=== PATIENT | female | born 1980 | race Caucasian/White ===

== ENCOUNTER 2019-04-23 12:54 | Outpatient (CLI) | payer OTHER, MEDICAID, SELFPAY ==
[2019-04-23 13:25] VITALS: BP 0/0
[2019-04-23 13:26] VITALS: BP 90/77; PULSE 100
[2019-04-23 13:33] VITALS: BMI 73.2
== END 2019-04-23 14:35 | disposition home or self-care (01) ==
LOC: OPOB 13:12 → OBGYN 13:51 → OPOB 04-24 13:28
PROVIDERS: Family Provider Family Medicine; Visit Provider Family Medicine
DX: O26.899 Other specified pregnancy related conditions, unspecified trimester (principal); Z3A.00 Weeks of gestation of pregnancy not specified; R10.9 Unspecified abdominal pain
CPT/HCPCS: 59025; 99211

== ENCOUNTER 2019-04-27 14:43 | Inpatient (IN) | payer OTHER, MEDICAID, SELFPAY ==
[2019-04-27] VITALS (52 sets, daily range): BP systolic 0–191; BP diastolic 0–103; PULSE 69–105; RESP 18–20; TEMP 36.7–37.1; BMI 72.8
[2019-04-27] MEDS: acetaminophen 325 mg Tablet 650 MG PO (16:28)
[2019-04-27] MEDS: dextrose 5%-lactated ringers 1,000 ML 125 ML IV (16:32)
[2019-04-27] MEDS: oxytocin 30 UNIT/500 ML BAG IV (16:32)
[2019-04-27 16:52] LABS: Basophils % 0.2 %; Eosinophils # 0.2 10^3/uL (0.0-0.8); Eosinophils % 1.4 %; Hematocrit 38.6 % (37.0-47.0); Hemoglobin 12.7 g/dL (11.5-15.3); Lymphocytes # 2.8 10^3/uL (0.8-4.8); Lymphocytes % 19.3 %; Mean Corpuscular HGB Conc 32.9 g/dL (30.0-36.0); Mean Corpuscular Hemoglobin 31.1 pg (28.0-34.0); Mean Corpuscular Volume 94.6 fL (81-99); Mean Platelet Volume 10.7 fL (7.4-10.4); Monocytes # 1.3 10^3/uL (0.2-0.9); Monocytes % 8.8 %; Neutrophils # 10.1 10^3/uL (1.8-7.7); Neutrophils % 69.7 %; Nucleated Red Blood Cells % 0 %; Platelet Count 343 10^3/cmm (130-400); Red Blood Count 4.08 10^6/uL (4.1-5.3); White Blood Count 14.5 10^3/uL (4.0-10.0)
[2019-04-27] MEDS: fentaNYL 50 mcg/mL INJ 2mL IV ×3 (18:41→21:56)
[2019-04-27] MEDS: labetalol 200 mg Tablet PO (20:46)
[2019-04-27] MEDS: labetalol 5 mg/mL SDV 20mL IVP ×2 (21:30→22:12)
[2019-04-28] VITALS (21 sets, daily range): BP systolic 0–161; BP diastolic 0–85; PULSE 72–98; RESP 16–22; TEMP 36.7–36.8; O2SAT 96–98
--- NOTE | 2019-04-28 01:15 | P.PCNOB_ITS ---
Delivery Note: Date of delivery: 04/28/19 Pre-delivery diagnoses: 1. 39-year-old 3 para 2-0-0-2 with an estimated gestational age of 39 weeks presenting for induction due to morbid obesity and some gestational hypertension Post-delivery diagnoses: Status post spontaneous vaginal delivery Estimated blood loss (mL): 200 Delivery: DELIVERY: The patient progressed to complete without difficulty. She delivered a male with a weight of 8 pounds 10 ounces with Apgars of 9, 10. The baby was delivered from the NAHOMI position. The baby's mouth and nose were suctioned at the site of the perineum. The baby was then completely delivered and placed on the mother's abdomen. The cord was then clamped and cut. There was no nuchal cord. There was no meconium. The placenta and 3 vessel cord were delivered intact shortly thereafter. The perineum and vaginal vault were carefully examined. A posterior midline second-degree laceration was noted. It was repaired with 3-0 Vicryl in the usual fashion. 2% lidocaine was used some to locally anesthetize the area. Both the mother and the baby were in stable condition. Post-Delivery Status: Good Coding Level of Care Code Acute Medical Billing Representative for Cheryl Mares
[2019-04-28] MEDS: HYDROcodone-acetaminophen 5-325 mg Tablet PO (03:17)
[2019-04-28] MEDS: docusate sodium 100 mg Capsule PO ×2 (09:21→20:01)
[2019-04-28] MEDS: prenatal vitamin Capsule 1 CAP PO (09:21)
[2019-04-28 14:08] LABS: Hematocrit 31.3 % (37.0-47.0); Hemoglobin 10.2 g/dL (11.5-15.3); Mean Corpuscular HGB Conc 32.6 g/dL (30.0-36.0); Mean Corpuscular Hemoglobin 30.3 pg (28.0-34.0); Mean Corpuscular Volume 92.9 fL (81-99); Platelet Count 236 10^3/cmm (130-400); Red Blood Count 3.37 10^6/uL (4.1-5.3); Red Cell Distribution Width 14.2 % (12.1-15.1)
--- NOTE | 2019-04-29 00:38 | P.DS_ITS ---
Discharge Providers REMEDIATION PROJECT ENGINEER Date of Admission: 04/27/19 14:43 Date of Discharge: 04/29/19 Attending Provider at Admission: Armaan Barraza MD Attending Provider at Discharge: Armaan Barraza MD Diagnoses at Discharge Discharge Diagnosis (1) 39 weeks gestation of : Status: Acute (2) Morbid obesity: Status: Acute (3) Spontaneous vaginal delivery: Status: Acute (4) Sterilization education: Status: Acute Reason for Visit Reason for Visit: Reason For Visit: INDUCTION Hospital Course Hospital Course: The patient presented to the hospital for induction at 39 weeks due to morbid obesity, swelling, and maternal age. She was placed on Pitocin. An amniotomy was performed. She did have some high blood pressures during labor process for which she was placed on labetalol. She progressed to complete and had an unremarkable spontaneous vaginal delivery. Her course was also unremarkable. Her bleeding was within normal limits. Her pain was well controlled with ibuprofen. Information Peripartum Data: Infant Delivery Method: Vaginal Physical Exam Narrative: EXAM NARRATIVE: The patient is alert. She appears comfortable. Her heart has a regular rate and rhythm with no murmurs appreciated. Lungs are clear to auscultation bilaterally. Her fundus is firm and below the umbilicus. The patient has 1-2+ edema in her ankles bilaterally. Discharge Data Data Completed and Pending: Labs from last 24 hours 04/28/19 13:54 WBC 16.0 H RBC 3.37 L Hgb 10.2 L Hct 31.3 L MCV 92.9 MCH 30.3 MCHC 32.6 RDW 14.2 Plt Count 236 MPV 11.0 H Vitals: Last Vital Signs Temp 98.2 F 04/28/19 20:00 Pulse 80 04/28/19 20:00 Resp 16 04/28/19 20:00 BP 108/64 04/28/19 20:00 Pulse Ox 98 04/28/19 20:00 Discharge Plan Discharge Patient Disposition: Home, Self-Care Condition: Stable Prescriptions: New ibuprofen 800 mg Tablet 800 mg PO TID Qty: 30 RF: 0 Continued PNV cmb#[id number]-ferrous fumarate-FA [] 28 mg iron- 800 mcg Tablet 1 tab PO DAILY RF: 0 Discharge Orders: Discharge Order (Routine); Ordered 04/29/19 Ordered By: Armaan Barraza Referrals: Iban Medrano MD [Physician] - 1 month Armaan Barraza MD [Family Provider] - 6 Weeks Discharge Diet: Regular Discharge Activity: Limit activity as instructed Discharge Attestations REMEDIATION PROJECT ENGINEER Time Spent in Discharge Care*: less than 30 min Coding Level of Care Code Acute Physician Pediatrician for Chg Fwd Diagnoses 39 weeks gestation of Z3A.39 Morbid obesity E66.01 Spontaneous vaginal delivery O80 Sterilization education Z30.09
[2019-04-29 04:11] VITALS: BP 98/43; PULSE 86; RESP 16; TEMP 36.6; O2SAT 98
[2019-04-29 10:29] VITALS: BP 124/81; PULSE 83; RESP 18; TEMP 36.7; O2SAT 98
== END 2019-04-29 11:45 | disposition home or self-care (01) | DRG 807 ==
PROVIDERS: Admitting Provider Family Medicine; Family Provider Family Medicine; Visit Provider Family Medicine
DX: O13.4 Gestational [pregnancy-induced] hypertension without significant proteinuria, complicating childbirth (principal); Z37.0 Single live birth; O99.214 Obesity complicating childbirth; Z3A.39 39 weeks gestation of pregnancy; O70.1 Second degree perineal laceration during delivery
CPT/HCPCS: 12345; 36415; 59409; 85025; 85027; 96375; 98960; J3010; J3490

== ENCOUNTER 2019-06-03 16:50 | Outpatient (CLI) | payer OTHER, MEDICAID, SELFPAY ==
--- NOTE | 2019-06-03 16:30 | USCV_ITS ---
Nicolette Alvares Age: 39 Gender: F : 1980 Exam Date: 06/03/2019 17:14 Ordering Phys: Armaan Barraza MD Technologist: Kayla Grimm Exam Location: [facility] – [place] Indication: EDEMA OF EXTREMITIES BP: 138 / 70 HR: 77 Rhythm: Sinus Technical Quality: Adequate MEASUREMENTS (Male / Female) Normal Values 2D ECHO LV Diastolic Diameter PLAX 5.1 cm 4.2 - 5.9 / 3.9 - 5.3 cm LV Systolic Diameter PLAX 3.8 cm IVS Diastolic Thickness 1.2 cm 0.6 - 1.0 / 0.6 - 0.9 cm IVS Systolic Thickness 1.4 cm LVPW Diastolic Thickness 1.1 cm 0.6 - 1.0 / 0.6 - 0.9 cm LVPW Systolic Thickness 1.4 cm LVOT Diameter 2.0 cm LV Ejection Fraction 2D Teich 50.5 % LV Ejection Fraction MOD 2C 57.1 % LV Ejection Fraction 2C AL 57.2 % LA Diameter 4.8 cm LA Width 3.4 cm LA Height 5.4 cm RA Width 3.8 cm RA Height 5.7 cm Aorta at Sinotubular Diameter 3.3 cm M-MODE LV Diastolic Diameter MM 6.2 cm 4.2 - 5.9 / 3.9 - 5.3 cm LV Systolic Diameter MM 4.4 cm LV Ejection Fraction MM Teich 54.8 % IVS Diastolic Thickness MM 1.2 cm 0.6 - 1.0 / 0.6 - 0.9 cm IVS Systolic Thickness MM 1.7 cm LVPW Diastolic Thickness MM 1.2 cm 0.6 - 1.0 / 0.6 - 0.9 cm LVPW Systolic Thickness MM 1.7 cm Aortic Annulus Diameter 3.2 cm LA Ao Ratio MM 1.5 MV E Point Septal Separation 0.7 cm DOPPLER AV Peak Velocity 146.0 cm/s LVOT Peak Velocity 74.0 cm/s AV Area Cont Eq vti 1.8 cm squared AV Area Cont Eq pk 1.7 cm squared MV Area PHT 3.0 cm squared Mitral E to A Ratio 1.1 MV E' Velocity 11.0 cm/s Mitral E to MV E' Ratio 7.8 Mitral E to LV E' Lateral Ratio 7.8 Mitral E to LV E' Septal Ratio 7.9 TR Peak Velocity 247.1 cm/s TR Peak Gradient 24.4 mmHg TR Mean Velocity 196.9 cm/s TR Mean Gradient 16.1 mmHg TR Velocity Time Integral 67.3 cm TV Peak E Velocity 52.0 cm/s Right Atrial Pressure 3.0 mmHg Pulmonary Artery Systolic Pressu 27.4 mmHg PV Peak Velocity 105.0 cm/s RV Acceleration Time 0.1 s RV Ejection Time 0.3 s RV AcT/ET 0.5 FINDINGS Left Ventricle Normal left ventricular cavity size. Normal left ventricular systolic function. Left ventricular ejection fraction is estimated at 54 %. No regional wall motion abnormalities. Grade I/IV diastolic dysfunction (abnormal relaxation filling pattern), normal to mildly elevated filling pressures. Right Ventricle The right ventricle is normal in size and function. Right Atrium The right atrium is normal in size. Left Atrium The left atrium is normal in size. Mitral Valve Structurally normal mitral valve without significant stenosis or prolapse. There is no mitral regurgitation. Aortic Valve Structurally normal aortic valve without significant sclerosis or stenosis. There is no aortic regurgitation. Tricuspid Valve Structurally normal tricuspid valve without significant stenosis or regurgitation. Pulmonary artery systolic pressure is normal. Pulmonic Valve Structurally normal pulmonic valve without significant stenosis. There is no pulmonic regurgitation. Pericardium Normal pericardium without effusion. Aorta Normal ascending aorta dimension. CONCLUSIONS 1-Normal left ventricular cavity size. Normal left ventricular systolic function. Left ventricular ejection fraction is estimated at 54 %. No regional wall motion abnormalities. Grade I/IV diastolic dysfunction (abnormal relaxation filling pattern), normal to mildly elevated filling pressures. 2-There is no pericardial effusion. 3-No significant valve abnormalities. 4-Pulmonary artery systolic pressure is within normal limits. 5-Right atrial pressure is around 5 mm of mercury. 6-There are no prior echocardiogram studies to compare. Clifton Cook MD (Electronically Signed) Final Date: 04 June 2019 18:47 S
== END 2019-06-03 16:51 | disposition home or self-care (01) ==
LOC: US 16:50
PROVIDERS: Family Provider Family Medicine; PCP Family Medicine; Visit Provider Family Medicine
DX: R60.0 Localized edema (principal)
CPT/HCPCS: 93306

== ENCOUNTER 2019-06-17 12:03 | Outpatient (RCR) | payer OTHER, MEDICAID, SELFPAY | END 2019-06-28 23:59 | disposition home or self-care (01) | LOC: SPT 12:03 | PROVIDERS: Family Provider Family Medicine; PCP Family Medicine; Referring Provider Family Medicine; Visit Provider Family Medicine | DX: R60.0 Localized edema (principal) | CPT/HCPCS: 97140; 97161 ==

== ENCOUNTER 2019-10-12 08:08 | Outpatient (CLI) | payer OTHER, MEDICAID, SELFPAY | END 2019-10-12 08:09 | disposition home or self-care (01) | LOC: WOUND 08:09 | PROVIDERS: Family Provider Family Medicine; PCP Family Medicine; Visit Provider Thoracic Surgery (Cardiothoracic Vascular Surgery) | DX: R60.9 Edema, unspecified (principal) | CPT/HCPCS: A6530; G0463 ==

== ENCOUNTER 2021-03-07 10:55 | Emergency (ER) | payer OTHER, MEDICAID, SELFPAY ==
--- NOTE | 2021-03-07 11:07 | XR_ITS ---
WS: [id number] Exam: XR chest 1V portable [id number] Date/Time of Exam: 03/07/2021 11:22 AM Reason For Exam: sob Comparison 07/10/2015. The lungs are fully inflated and clear. Heart size is normal. No pleural effusions. Chronic eventrati on of the right diaphragm. XR/XR chest 1V portable [id number] IMPRESSION: 1. No acute cardiopulmonary finding.
[2021-03-07 11:13] VITALS: BP 160/93; PULSE 91; RESP 18; TEMP 37.1; O2SAT 97; BMI 83.2
[2021-03-07 12:32] LABS: Basophils # 0.1 10^3/uL (0.0-0.1); Basophils % 0.5 %; Eosinophils # 0.2 10^3/uL (0.0-0.8); Eosinophils % 1.3 %; Hematocrit 45.7 % (37.0-47.0); Hemoglobin 14.6 g/dL (11.5-15.3); Mean Corpuscular HGB Conc 31.9 g/dL (30.0-36.0); Mean Corpuscular Volume 90.7 fl (81-99); Mean Platelet Volume 10.2 fL (7.4-10.4); Monocytes # 1.1 10^3/uL (0.2-0.9); Neutrophils # 7.36 10^3/uL (1.8-7.7); Neutrophils % 62.8 %; Nucleated Red Blood Cells % 0 %; Platelet Count 389 10^3/cmm (130-400); Red Blood Count 5.04 10^6/uL (4.1-5.3); Red Cell Distribution Width 14.1 % (12.1-15.1); White Blood Count 11.7 10^3/uL (4.0-10.0)
[2021-03-07 13:03] LABS: Alanine Aminotransferase 14 U/L (0-33); Albumin Level 4.4 g/dL (3.5-5.2); Alkaline Phosphatase 93 IU/L (35-105); Anion Gap 17.4 (5-19); Aspartate Amino Transferase 18 U/L (0-32); Blood Urea Nitrogen 15 mg/dL (6-20); Calcium 9.5 mg/dL (8.5-10.5); Carbon Dioxide 21 mmol/L (22-29); Chloride 101 mmol/L (98-107); Globulin 3.9 g/dL (1.3-4.6); Glomerular Filtration Rate 110.7 mL/min (90-130); Glucose 93 mg/dL (65-115); Osmolality Calculated 281 mOsm/kg (285-295); Potassium 4.4 mmol/L (3.5-5.1); Sodium 135 mmol/L (136-145); Total Bilirubin 0.4 mg/dL (0.15-1.2); Total Protein 8.3 g/dL (6.6-8.7)
[2021-03-07 15:35] LABS: NT Pro B Type Natriuretic Pept 45 pg/mL (0-125)
[2021-03-07 16:01] VITALS: BP 146/101; PULSE 82; RESP 20; O2SAT 96
--- NOTE | 2021-03-07 16:05 | W.ED.SOB ---
HPI - SOB/Dyspnea General: Chief Complaint: Shortness of Breath/Dyspnea Stated Complaint: SOB, NAUSEA Time Seen by Provider: 03/07/21 15:57 History of Present Illness: HPI Narrative: 41-year-old female history of COPD presents due to shortness of breath. States she has had cough and shortness of breath for the past week. Recently tested negative for Covid on Thursday. Denies any fevers or chills. Denies any chest pain. Does state she has history of COPD but is not currently on albuterol. Patient is PERC negative. Review of Systems Narrative: - CONSTITUTIONAL: Denies weight loss, fever and chills. - HEENT: Denies changes in vision and hearing. - RESPIRATORY: As above - CV: Denies palpitations and CP. - GI: Denies abdominal pain, nausea, vomiting and diarrhea. - : Denies dysuria and urinary frequency. - MSK: Denies myalgia and joint pain. - SKIN: Denies rash and pruritus. - NEUROLOGICAL: Denies headache, weakness, numbness and syncope. - PSYCHIATRIC: Denies suicidal ideation [facility] ED PFSH: Medical History (Updated 04/08/20 @ 09:34 by Laura Alba MD) Bilateral lower extremity edema Left patella fracture Lymphedema of both lower extremities Obesity Surgical History History of left knee surgery Patella fracture Family History Mother Breast cancer Diabetes Hypertension Grandmother Diabetes maternal Father Hypertension Sister Thyroid disease Social History Smoking and tobacco status: current every day smoker cigarettes Packs smoked per day: 1 Alcohol intake: never Course Vital Signs: Vital signs: Vital Signs Temperature 98.7 F 03/07/21 11:13 Pulse Rate 82 03/07/21 16:01 Respiratory Rate 20 H 03/07/21 16:01 Blood Pressure 146/101 03/07/21 16:01 Pulse Oximetry 96 03/07/21 16:01 MDM - SOB/Dyspnea MDM Narrative: Medical decision making narrative: 41-year-old female presents with shortness of breath and cough for 1 week. Has had negative Covid test during this period. Mild wheezing on exam. She is hemodynamically stable afebrile nontoxic-appearing. Saturating well on room air and with ambulation. Prescription for albuterol and prednisone provided. Clinically suspect COPD exacerbation. X-ray does not reveal any sign of pneumothorax consolidation or other acute abnormality. Remainder of lab work is unremarkable. EKG does not reveal any acute ischemic change patient still having chest pain. At this time I believe patient would be safe for discharge and outpatient follow-up. Return precautions provided. Plan was reviewed with the patient who expressed understanding. Questions answered. Patient will follow up with PCP. Patient discharged in stable condition. Lab Data: Labs: Lab Results 03/07/21 03/07/21 03/07/21 12:24 12:24 12:24 WBC 11.7 10^3/uL H 10 ^3/uL (4.0-10.0) RBC 5.04 10^6/uL 10^6 /uL (4.1-5.3) Hgb 14.6 g/dL g/dL (11.5-15.3) Hct 45.7 % % (37.0-47.0) MCV 90.7 fl fl (81-99) MCH 29.0 pg pg (28.0-34.0) MCHC 31.9 g/dL g/dL (30.0-36.0) RDW 14.1 % % (12.1-15.1) Plt Count 389 10^3/cmm 10^3 /cmm (130-400) MPV 10.2 fL fL (7.4-10.4) Neut % (Auto) 62.8 % % Lymph % (Auto) 26.0 % % [place] % (Auto) 9.0 % % Eos % (Auto) 1.3 % % Baso % (Auto) 0.5 % % Neut # (Auto) 7.36 10^3/uL 10^3 /uL (1.8-7.7) Lymph # (Auto) 3.0 10^3/uL 10^3/ uL (0.8-4.8) [place] # (Auto) 1.1 10^3/uL H 10^ 3/uL (0.2-0.9) Eos # (Auto) 0.2 10^3/uL 10^3/ uL (0.0-0.8) Baso # (Auto) 0.1 10^3/uL 10^3/ uL (0.0-0.1) Nucleated RBC % (a uto) 0 % % Nucleated RBCs # 0.0 /100WBC /100W BC Sodium 135 mmol/L L mmol /L (136-145) Potassium 4.4 mmol/L mmol/L (3.5-5.1) Chloride 101 mmol/L mmol/L (98-107) Carbon Dioxide 21 mmol/L L mmol/ L (22-29) Anion Gap 17.4 (5-19) BUN 15 mg/dL mg/dL (6-20) Creatinine 0.6 mg/dL mg/dL (0.5-0.9) GFR Calculation 110.7 mL/min mL/m in (90-130) Glucose 93 mg/dL mg/dL (65-115) Calculated Osmolal ity 281 mOsm/kg L mOs m/kg (285-295) Calcium 9.5 mg/dL mg/dL (8.5-10.5) Total Bilirubin 0.4 mg/dL mg/dL (0.15-1.2) AST 18 U/L U/L (0-32) ALT 14 U/L U/L (0-33) Alkaline Phosphata se 93 IU/L IU/L (35-105) NT-Pro-B Natriuret Pep 45 pg/mL pg/mL (0-125) Total Protein 8.3 g/dL g/dL (6.6-8.7) Albumin 4.4 g/dL g/dL (3.5-5.2) Globulin 3.9 g/dL g/dL (1.3-4.6) EKG Data^: EKG 1: Other EKG Comments: Normal sinus rhythm rate of 81. Possible LVH. No sign of acute ischemia or other acute abnormality. Discharge Plan Discharge Prescriptions: No Action albuterol sulfate 90 mcg/actuation HFA aerosol inhaler 2 puff inhalation Q6H PRNRF: 0 furosemide [Lasix] 20 mg tablet 20 mg PO DAILY Qty: 30 RF: 1 potassium chloride 8 mEq tablet extended release 8 meq PO DAILY Qty: 30 RF: 1 ibuprofen 800 mg Tablet 800 mg PO TID Qty: 30 RF: 0 Coding Level of Care Code ED Provider Relations Consultant for Chg Fwd
--- NOTE | 2021-03-07 16:06 | ECG_ITS ---
[facility] Test Date: 2021-03-07 Pat Name: Nicolette Alvares Department: Room: Gender: Female Patent Agent: : 1980 Requested By: Sergio Lombardo Order Number: [id number] Garcia MD: Efrain Gutierrez M.D. Measurements Intervals [place] Rate: 81 P: 12 NE: 163 QRS: -24 QRSD: 99 T: 64 QT: 386 QTc: 449 Interpretive Statements SINUS RHYTHM VOLTAGE CRITERIA FOR LVH [MEETS CRITERIA IN ONE OF: R(aVL), S(V1), R(V5), R(V5/V6)+S(V1)] POSSIBLE ANTERIOR MYOCARDIAL INFARCTION , OF INDETERMINATE AGE [30 ms Q WAVE IN V3/V4, OR R < 0.2 mV IN V4] No previous ECG available for comparison Electronically Signed On 03-09-2021 7:39:51 HARDNESS INSPECTOR by Efrain Gutierrez M.D. [id number]
== END 2021-03-07 16:49 | disposition home or self-care (01) ==
PROVIDERS: Emergency Medicine; Emergency Provider Emergency Medicine; PCP Family Medicine
DX: R06.02 Shortness of breath (principal); F17.210 Nicotine dependence, cigarettes, uncomplicated
CPT/HCPCS: 36415; 71045; 80053; 83880; 85025; 93005; 99283

== ENCOUNTER 2021-04-10 10:01 | Outpatient (CLI) | payer OTHER, MEDICAID, SELFPAY | END 2021-04-10 10:02 | disposition home or self-care (01) | LOC: WOUND 10:02 | PROVIDERS: PCP Family Medicine; Visit Provider Thoracic Surgery (Cardiothoracic Vascular Surgery) | DX: S81.802A Unspecified open wound, left lower leg, initial encounter (principal); X58.XXXA Exposure to other specified factors, initial encounter; F17.210 Nicotine dependence, cigarettes, uncomplicated; J44.9 Chronic obstructive pulmonary disease, unspecified; I89.0 Lymphedema, not elsewhere classified | CPT/HCPCS: 97597; 99213 ==

== ENCOUNTER 2021-05-08 13:03 | Outpatient (CLI) | payer OTHER, MEDICAID, SELFPAY | END 2021-05-08 13:04 | disposition home or self-care (01) | LOC: WOUND 13:03 | PROVIDERS: PCP Family Medicine; Visit Provider Thoracic Surgery (Cardiothoracic Vascular Surgery) | DX: I87.2 Venous insufficiency (chronic) (peripheral) (principal); L97.821 Non-pressure chronic ulcer of other part of left lower leg limited to breakdown of skin; F17.210 Nicotine dependence, cigarettes, uncomplicated; J44.9 Chronic obstructive pulmonary disease, unspecified | CPT/HCPCS: 97597 ==

== ENCOUNTER 2021-05-15 13:06 | Outpatient (CLI) | payer OTHER, MEDICAID, SELFPAY | END 2021-05-15 13:07 | disposition home or self-care (01) | LOC: WOUND 13:06 | PROVIDERS: PCP Family Medicine; Visit Provider Thoracic Surgery (Cardiothoracic Vascular Surgery) | DX: I87.2 Venous insufficiency (chronic) (peripheral) (principal); L97.822 Non-pressure chronic ulcer of other part of left lower leg with fat layer exposed; F17.210 Nicotine dependence, cigarettes, uncomplicated; J44.9 Chronic obstructive pulmonary disease, unspecified | CPT/HCPCS: 11042 ==

== ENCOUNTER 2021-05-29 13:17 | Outpatient (CLI) | payer OTHER, MEDICAID, SELFPAY | END 2021-05-29 13:18 | disposition home or self-care (01) | LOC: WOUND 13:17 | PROVIDERS: PCP Family Medicine; Visit Provider Thoracic Surgery (Cardiothoracic Vascular Surgery) | DX: I87.2 Venous insufficiency (chronic) (peripheral) (principal); I96 Gangrene, not elsewhere classified; L97.821 Non-pressure chronic ulcer of other part of left lower leg limited to breakdown of skin; F17.210 Nicotine dependence, cigarettes, uncomplicated | CPT/HCPCS: 11042; A6219; A6250 ==

== ENCOUNTER 2021-06-05 13:06 | Outpatient (CLI) | payer OTHER, MEDICAID, SELFPAY | END 2021-06-05 13:07 | disposition home or self-care (01) | LOC: WOUND 13:08 | PROVIDERS: PCP Family Medicine; Visit Provider Thoracic Surgery (Cardiothoracic Vascular Surgery) | DX: I96 Gangrene, not elsewhere classified (principal); I87.2 Venous insufficiency (chronic) (peripheral); L97.821 Non-pressure chronic ulcer of other part of left lower leg limited to breakdown of skin; F17.210 Nicotine dependence, cigarettes, uncomplicated | CPT/HCPCS: 11042 ==

== ENCOUNTER 2021-06-12 13:10 | Outpatient (CLI) | payer OTHER, MEDICAID, SELFPAY | END 2021-06-12 13:11 | disposition home or self-care (01) | LOC: WOUND 13:12 | PROVIDERS: PCP Family Medicine; Visit Provider Thoracic Surgery (Cardiothoracic Vascular Surgery) | DX: I87.2 Venous insufficiency (chronic) (peripheral) (principal); F17.210 Nicotine dependence, cigarettes, uncomplicated; L97.821 Non-pressure chronic ulcer of other part of left lower leg limited to breakdown of skin; I96 Gangrene, not elsewhere classified | CPT/HCPCS: 11042 ==

== ENCOUNTER → 2021-07-10 13:32 | Outpatient (BNVA) | payer OTHER, MEDICAID, SELFPAY | PROVIDERS: PCP Family Medicine; Visit Provider Nurse Practitioner Family | DX: Z76.89 Persons encountering health services in other specified circumstances (principal) | CPT/HCPCS: 87070; 87077; 87176; 87186; 87205 ==

== ENCOUNTER 2021-08-26 22:55 | Emergency (ER) | payer OTHER, MEDICAID, SELFPAY ==
[2021-08-26 22:58] VITALS: BP 153/99; PULSE 98; RESP 20; TEMP 37.2; O2SAT 99; BMI 78.8
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
[2021-08-26] MEDS: HYDROcodone-acetaminophen 5-325 mg Tablet 1 TAB PO (23:12)
[2021-08-27 01:12] VITALS: BP 147/74; PULSE 63; RESP 20
== END 2021-08-27 01:07 | disposition home or self-care (01) ==
PROVIDERS: Emergency Provider Emergency Medicine; PCP Family Medicine
DX: S16.1XXA Strain of muscle, fascia and tendon at neck level, initial encounter (principal); M25.561 Pain in right knee; G89.29 Other chronic pain; V43.52XA Car driver injured in collision with other type car in traffic accident, initial encounter
CPT/HCPCS: 72125; 73562; 99283

== ENCOUNTER → 2021-09-16 11:37 | Outpatient (BNVA) | payer OTHER, MEDICAID, SELFPAY | PROVIDERS: PCP Family Medicine; Visit Provider Nurse Practitioner Family | DX: Z01.89 Encounter for other specified special examinations (principal) | CPT/HCPCS: 87070; 87077; 87186 ==

== ENCOUNTER → 2021-09-19 13:03 | Outpatient (BNVA) | payer OTHER, MEDICAID, SELFPAY | PROVIDERS: PCP Family Medicine; Visit Provider Nurse Practitioner Family | DX: I87.2 Venous insufficiency (chronic) (peripheral) (principal); L97.821 Non-pressure chronic ulcer of other part of left lower leg limited to breakdown of skin | CPT/HCPCS: 29581 ==

== ENCOUNTER → 2021-09-20 09:45 | Outpatient (BNVA) | payer OTHER, MEDICAID, SELFPAY | PROVIDERS: PCP Family Medicine; Visit Provider Obstetrics & Gynecology | DX: Z01.812 Encounter for preprocedural laboratory examination (principal); Z30.09 Encounter for other general counseling and advice on contraception | CPT/HCPCS: 80053; 81000; 81025; 85025; 86850; 86900 ==

== ENCOUNTER → 2021-09-23 12:58 | Outpatient (BNVA) | payer OTHER, MEDICAID, SELFPAY | PROVIDERS: PCP Family Medicine; Visit Provider Thoracic Surgery (Cardiothoracic Vascular Surgery) | DX: I87.2 Venous insufficiency (chronic) (peripheral) (principal); L97.822 Non-pressure chronic ulcer of other part of left lower leg with fat layer exposed; I96 Gangrene, not elsewhere classified | CPT/HCPCS: 97597; A6252 ==

== ENCOUNTER → 2021-09-27 11:17 | Outpatient (BNVA) | payer OTHER, MEDICAID, SELFPAY | PROVIDERS: PCP Family Medicine; Visit Provider Surgery | DX: I87.2 Venous insufficiency (chronic) (peripheral) (principal); L97.822 Non-pressure chronic ulcer of other part of left lower leg with fat layer exposed | CPT/HCPCS: 29581 ==

== ENCOUNTER → 2021-10-02 12:57 | Outpatient (BNVA) | payer OTHER, MEDICAID, SELFPAY | PROVIDERS: PCP Family Medicine; Visit Provider Thoracic Surgery (Cardiothoracic Vascular Surgery) | DX: I87.2 Venous insufficiency (chronic) (peripheral) (principal); L97.822 Non-pressure chronic ulcer of other part of left lower leg with fat layer exposed; I96 Gangrene, not elsewhere classified | CPT/HCPCS: 97597; A6252; A6446 ==

== ENCOUNTER → 2021-10-04 14:16 | Outpatient (BNVA) | payer OTHER, MEDICAID, SELFPAY | PROVIDERS: PCP Family Medicine; Visit Provider Surgery | DX: I87.2 Venous insufficiency (chronic) (peripheral) (principal); L97.822 Non-pressure chronic ulcer of other part of left lower leg with fat layer exposed | CPT/HCPCS: 29581; 99211; A6446 ==

== ENCOUNTER → 2021-10-09 13:02 | Outpatient (BNVA) | payer OTHER, MEDICAID, SELFPAY | PROVIDERS: PCP Family Medicine; Visit Provider Thoracic Surgery (Cardiothoracic Vascular Surgery) | DX: I87.2 Venous insufficiency (chronic) (peripheral) (principal); L97.822 Non-pressure chronic ulcer of other part of left lower leg with fat layer exposed; I96 Gangrene, not elsewhere classified | CPT/HCPCS: 97597; A6446 ==

== ENCOUNTER → 2021-10-11 13:17 | Outpatient (BNVA) | payer OTHER, MEDICAID, SELFPAY | PROVIDERS: PCP Family Medicine; Visit Provider Surgery | DX: I87.2 Venous insufficiency (chronic) (peripheral) (principal); L97.822 Non-pressure chronic ulcer of other part of left lower leg with fat layer exposed | CPT/HCPCS: 29581; A6251; A6446 ==

== ENCOUNTER → 2021-10-14 13:04 | Outpatient (BNVA) | payer OTHER, MEDICAID, SELFPAY | PROVIDERS: PCP Family Medicine; Visit Provider Thoracic Surgery (Cardiothoracic Vascular Surgery) | DX: I87.2 Venous insufficiency (chronic) (peripheral) (principal); L97.822 Non-pressure chronic ulcer of other part of left lower leg with fat layer exposed; I96 Gangrene, not elsewhere classified | CPT/HCPCS: 97597; A6446 ==

== ENCOUNTER → 2021-10-16 13:06 | Outpatient (BNVA) | payer OTHER, MEDICAID, SELFPAY | PROVIDERS: PCP Family Medicine; Visit Provider Thoracic Surgery (Cardiothoracic Vascular Surgery) | DX: L97.822 Non-pressure chronic ulcer of other part of left lower leg with fat layer exposed (principal); I87.2 Venous insufficiency (chronic) (peripheral) | CPT/HCPCS: 29581 ==

== ENCOUNTER → 2021-10-18 15:10 | Outpatient (BNVA) | payer OTHER, MEDICAID, SELFPAY | PROVIDERS: PCP Family Medicine; Visit Provider Nurse Practitioner Family | DX: L97.822 Non-pressure chronic ulcer of other part of left lower leg with fat layer exposed (principal); I87.2 Venous insufficiency (chronic) (peripheral) | CPT/HCPCS: 29581 ==

== ENCOUNTER → 2021-10-21 13:10 | Outpatient (BNVA) | payer OTHER, MEDICAID, SELFPAY | PROVIDERS: PCP Family Medicine; Visit Provider Thoracic Surgery (Cardiothoracic Vascular Surgery) | DX: I87.2 Venous insufficiency (chronic) (peripheral) (principal); L97.822 Non-pressure chronic ulcer of other part of left lower leg with fat layer exposed; I96 Gangrene, not elsewhere classified | CPT/HCPCS: 97597; A6446 ==

== ENCOUNTER → 2021-10-22 13:02 | Outpatient (BNVA) | payer OTHER, MEDICAID, SELFPAY | PROVIDERS: PCP Family Medicine; Visit Provider Nurse Practitioner Family | DX: L97.822 Non-pressure chronic ulcer of other part of left lower leg with fat layer exposed (principal); I87.2 Venous insufficiency (chronic) (peripheral) | CPT/HCPCS: 29581 ==

== ENCOUNTER → 2021-10-24 13:00 | Outpatient (BNVA) | payer OTHER, MEDICAID, SELFPAY | PROVIDERS: PCP Family Medicine; Visit Provider Nurse Practitioner Family | DX: L97.822 Non-pressure chronic ulcer of other part of left lower leg with fat layer exposed (principal); I87.2 Venous insufficiency (chronic) (peripheral) | CPT/HCPCS: 29581 ==

== ENCOUNTER → 2021-10-28 13:06 | Outpatient (BNVA) | payer OTHER, MEDICAID, SELFPAY | PROVIDERS: PCP Family Medicine; Visit Provider Nurse Practitioner Family | DX: I87.2 Venous insufficiency (chronic) (peripheral) (principal); L97.822 Non-pressure chronic ulcer of other part of left lower leg with fat layer exposed; I96 Gangrene, not elsewhere classified | CPT/HCPCS: 11042 ==

== ENCOUNTER → 2021-10-31 13:03 | Outpatient (BNVA) | payer OTHER, MEDICAID, SELFPAY | PROVIDERS: PCP Family Medicine; Visit Provider Nurse Practitioner Family | DX: L97.822 Non-pressure chronic ulcer of other part of left lower leg with fat layer exposed (principal); I87.2 Venous insufficiency (chronic) (peripheral) | CPT/HCPCS: 29581; 97597 ==

== ENCOUNTER → 2021-11-04 08:10 | Outpatient (BNVA) | payer OTHER, MEDICAID, SELFPAY | PROVIDERS: PCP Family Medicine; Visit Provider Thoracic Surgery (Cardiothoracic Vascular Surgery) | DX: I87.2 Venous insufficiency (chronic) (peripheral) (principal); L97.822 Non-pressure chronic ulcer of other part of left lower leg with fat layer exposed; I96 Gangrene, not elsewhere classified | CPT/HCPCS: 97597; A6446 ==

== ENCOUNTER → 2021-11-07 14:04 | Outpatient (BNVA) | payer OTHER, MEDICAID, SELFPAY | PROVIDERS: PCP Family Medicine; Visit Provider Nurse Practitioner Family | DX: I87.2 Venous insufficiency (chronic) (peripheral) (principal); L97.822 Non-pressure chronic ulcer of other part of left lower leg with fat layer exposed | CPT/HCPCS: 29581; A6446 ==

== ENCOUNTER → 2021-11-11 07:54 | Outpatient (BNVA) | payer OTHER, MEDICAID, SELFPAY | PROVIDERS: PCP Family Medicine; Visit Provider Thoracic Surgery (Cardiothoracic Vascular Surgery) | DX: I87.2 Venous insufficiency (chronic) (peripheral) (principal); L97.822 Non-pressure chronic ulcer of other part of left lower leg with fat layer exposed; I96 Gangrene, not elsewhere classified | CPT/HCPCS: 97597 ==

== ENCOUNTER → 2021-11-14 10:50 | Outpatient (BNVA) | payer OTHER, MEDICAID, SELFPAY | PROVIDERS: PCP Family Medicine; Visit Provider Nurse Practitioner Family | DX: L97.822 Non-pressure chronic ulcer of other part of left lower leg with fat layer exposed (principal); I87.2 Venous insufficiency (chronic) (peripheral) | CPT/HCPCS: 29581 ==

== ENCOUNTER → 2021-11-18 08:03 | Outpatient (BNVA) | payer OTHER, MEDICAID, SELFPAY | PROVIDERS: PCP Family Medicine; Visit Provider Thoracic Surgery (Cardiothoracic Vascular Surgery) | DX: I87.2 Venous insufficiency (chronic) (peripheral) (principal); L97.822 Non-pressure chronic ulcer of other part of left lower leg with fat layer exposed; I96 Gangrene, not elsewhere classified | CPT/HCPCS: 97597 ==

== ENCOUNTER → 2021-11-21 11:32 | Outpatient (BNVA) | payer OTHER, MEDICAID, SELFPAY | PROVIDERS: PCP Family Medicine; Visit Provider Nurse Practitioner Family | DX: I87.2 Venous insufficiency (chronic) (peripheral) (principal); L97.822 Non-pressure chronic ulcer of other part of left lower leg with fat layer exposed | CPT/HCPCS: 29581 ==

== ENCOUNTER → 2022-01-13 08:27 | Outpatient (BNVA) | payer OTHER, MEDICAID, SELFPAY | PROVIDERS: PCP Family Medicine; Visit Provider Nurse Practitioner Family | DX: L97.822 Non-pressure chronic ulcer of other part of left lower leg with fat layer exposed (principal); I87.2 Venous insufficiency (chronic) (peripheral) | CPT/HCPCS: 87070; 87077; 87176; 87186; 87205 ==

== ENCOUNTER 2024-02-11 02:22 | Emergency (ER) | payer OTHER, MEDICAID, SELFPAY ==
[2024-02-11 02:27] VITALS: PULSE 89; RESP 24; O2SAT 100; BMI 72.5
--- NOTE | 2024-02-11 02:29 | ECG_ITS ---
[facility] Test Date: 2024-02-11 Pat Name: Nicolette Alvares Department: Room: Gender: Female Supervisor Contact Lens: : 1980 Requested By: Anamaria Price Order Number: [id number] Garcia MD: Isabel Ochoa M.D. Measurements Intervals [place] Rate: 82 P: 45 VA: 174 QRS: -5 QRSD: 92 T: 48 QT: 366 QTc: 429 Interpretive Statements SINUS RHYTHM MINIMAL VOLTAGE CRITERIA FOR LVH, CONSIDER NORMAL VARIANT [MEETS CRITERIA IN ONE OF: R(aVL), S(V1), R(V5), R(V5/V6)+S(V1)] POSSIBLE ANTERIOR MYOCARDIAL INFARCTION , PROBABLY OLD [30 ms Q WAVE IN V3/V4, OR R < 0.2 mV IN V4] Compared to ECG 03/07/2021 16:19:46 No significant changes Electronically Signed On 02-11-2024 21:27:27 LAUNCH MANAGER by Isabel Ochoa M.D. [id number]
[2024-02-11 02:35] VITALS: BP 146/79; PULSE 71; RESP 16; O2SAT 100
--- NOTE | 2024-02-11 02:35 | XRR_ITS ---
PROCEDURE INFORMATION: Exam: XR Chest Exam date and time: 02/11/2024 2:53 AM Age: 43 years old Clinical indication: Pain; Chest pressure; Additional info: Chest pain TECHNIQUE: Imaging protocol: Radiologic exam of the chest. Views: 1 view. COMPARISON: CR XR chest 2V* [id number] 03/27/2022 5:44 PM FINDINGS: Lungs: Unremarkable. No consolidation. Pleural spaces: Unremarkable. No pleural effusion. No pneumothorax. Heart/Mediastinum: Unremarkable. No cardiomegaly. Bones/joints: Unremarkable. XR/XR chest 1V portable [id number] IMPRESSION: No acute findings.
--- NOTE | 2024-02-11 02:36 | W.ED.CHESTPA ---
HPI - Chest Pain General: Chief Complaint: Chest Pain Stated Complaint: chest pain Time Seen by Provider: 02/11/24 02:35 History of Present Illness: 43-year-old female with a history of morbid obesity, COPD, lymphedema and a chronic wound on her left leg who presents emergency room with chest pain. Says she had some stressful events at home and that had gone to work. She had pain in her back and then her chest. It has been kind of migratory. It has been sharp at times and dull at times. She was at work and they told her that she needed to go to the emergency room to get checked out. No known cardiac history. No cough. No shortness of breath. Related Data Home Medications Medication Instructions Recorded Confirmed acetaminophen 500 mg tablet 1,000 mg PO Q6H PRN pain 08/09/21 09/20/21 hydrochlorothiazide 25 mg tablet 25 mg PO DAILY 10/22/22 losartan 50 mg tablet 50 mg PO DAILY 10/22/22 promethazine 25 mg tablet 25 mg PO DAILY 10/22/22 zolpidem 5 mg tablet (Ambien) 5 mg PO .HS PRN 10/22/22 Previous Rx's Medication Instructions Recorded sulfamethoxazole 800 1 tab PO BID #14 tabs 04/10/23 mg-trimethoprim 160 mg tablet (Bactrim DS) Allergies Allergy/AdvReac Type Severity Reaction Status Date / Time adhesive Allergy skin Verified 09/20/21 09:33 breakdown Review of Systems Narrative: Constitutional symptoms: Negative except as documented in HPI. Skin symptoms: Negative except as documented in HPI. Eye symptoms: Negative except as documented in HPI. ENMT symptoms: Negative except as documented in HPI. Respiratory symptoms: Negative except as documented in HPI. Cardiovascular symptoms: Negative except as documented in HPI. Gastrointestinal symptoms: Negative except as documented in HPI. Genitourinary symptoms: Negative except as documented in HPI. Musculoskeletal symptoms: Negative except as documented in HPI. Neurologic symptoms: Negative except as documented in HPI. Psychiatric symptoms: Negative except as documented in HPI. Endocrine symptoms: Negative except as documented in HPI. [facility] [place] ED PFSH: Medical History (Updated 02/11/24 @ 03:18 by Anamaria Dominguez MD) HTN (hypertension) Lymphedema of both lower extremities Bilateral lower extremity edema Obesity Left patella fracture Surgical History History of left knee surgery Patella fracture Family History Mother Breast cancer 30's Diabetes Hypertension Heart disease Grandmother Diabetes paternal Father Hypertension Diabetes Hyperlipidemia Sister Thyroid disease Brother Stroke Denies family history of Colon cancer Ovarian cancer Clotting disorder Anesthesia complication Bleeding disorder Uterine cancer Social History Smoking and tobacco/nicotine status: current every day tobacco/nicotine user cigarettes Packs smoked per day: 1 Alcohol intake: never Substance/Drug Use: never Physical Exam Narrative: EXAM NARRATIVE: General: Alert, no acute distress. Skin: Warm, dry. Head: Normocephalic, atraumatic. Neck: Supple, trachea midline. Eye: Extraocular movements are intact. Ears, nose, mouth and throat: mucosa moist. Cardiovascular: Regular, Normal peripheral perfusion. Respiratory: Lungs are clear to auscultation, respirations are non-labored, breath sounds are equal, Symmetrical chest wall expansion. Gastrointestinal: Soft, Nontender, Non distended Musculoskeletal: Normal ROM, no deformity. Neurological: Alert and oriented, No focal neurological deficit observed. Psychiatric: Cooperative, appropriate mood & affect. Course Vital Signs: Vital signs: Vital Signs Pulse Rate 76 02/11/24 03:00 Respiratory Rate 22 H 02/11/24 03:00 Blood Pressure 141/76 02/11/24 03:00 Pulse Oximetry 99 02/11/24 03:00 Oxygen Delivery Me thod Room Air 02/11/24 03:00 MDM - Chest Pain Medical Decision Making Differential diagnosis for patient with chest pain includes but is not limited to and based on the above HPI, review of systems and physical exam: Pneumonia. unstable angina. angina. Acute coronary syndrome / SD. Pulmonary embolism. Costochondritis / musculoskeletal. Pleurisy. Pericarditis. Esophageal spasm. Pancreatis. Cholecystitis. Orders placed to evaluate differential diagnosis based on the above differential, HPI and physical exam EKG: Time 2:29 AM. Rate 82. Normal sinus rhythm, No ST-T changes, no ectopy, normal LA & QRS intervals, This was reviewed and interpreted by myself the ER physician at 2:32 AM Chest x-ray: No acute process. No infiltrate. No pneumothorax. This was reviewed and interpreted by myself the emergency room physician. I also reviewed the radiology report. Lab Review: Laboratory results were reviewed and interpreted by myself the emergency room physician. Lab work is unremarkable. She does have some mild leukocytosis with a white count of 17,000. No infectious symptoms. Hemoglobin is 13. BUN and creatinine are 17 and 0.7. Troponin is negative. I reviewed the patient's medical record. Reexamination: Patient remained stable. No increased work of breathing. No altered mental status. No focal motor deficits. Assessment and plan: Noncardiac chest pain - Discharged home - Discussed plan with patient. Answered any questions. - Evaluation and treatment of this problem were appropriate in the emergency setting. Lab Data 02/11/24 02:40 02/11/24 02:40 Laboratory Results WBC 17.22 10^3/uL (3.29-11.43) H 02/11/24 02:40 RBC 4.47 10^6/uL (3.85-5.65) 02/11/24 02:40 Hgb 13.20 g/dL (11.27-16.99) 02/11/24 02:40 Hct 40.8 % (36-47) 02/11/24 02:40 MCV 91.3 fl (85-98) 02/11/24 02:40 MCH 29.5 pg (27-33) 02/11/24 02:40 MCHC 32.4 g/dL (30-55) 02/11/24 02:40 RDW 14.5 % (12.1-15.1) 02/11/24 02:40 Plt Count 386 10^3/cmm (157-399) 02/11/24 02:40 MPV 9.8 fL (7.4-10.4) 02/11/24 02:40 Neut % (Auto) 64.0 % 02/11/24 02:40 Lymph % (Auto) 24.9 % 02/11/24 02:40 [place] % (Auto) 7.8 % 02/11/24 02:40 Eos % (Auto) 2.2 % 02/11/24 02:40 Baso % (Auto) 0.6 % 02/11/24 02:40 Neut # (Auto) 11.02 10^3/uL (1.8-7.7) H 02/11/24 02:40 Lymph # (Auto) 4.3 10^3/uL (0.8-4.8) 02/11/24 02:40 [place] # (Auto) 1.4 10^3/uL (0.2-0.9) H 02/11/24 02:40 Eos # (Auto) 0.4 10^3/uL (0.0-0.8) 02/11/24 02:40 Baso # (Auto) 0.1 10^3/uL (0.0-0.1) 02/11/24 02:40 Nucleated RBC % (auto) 0 % 02/11/24 02:40 Nucleated RBCs # 0.0 /100WBC 02/11/24 02:40 Sodium 139 mmol/L (136-145) 02/11/24 02:40 Potassium 3.9 mmol/L (3.5-5.1) 02/11/24 02:40 Chloride 103 mmol/L (98-107) 02/11/24 02:40 Carbon Dioxide 22 mmol/L (22-29) 02/11/24 02:40 Anion Gap 17.9 (5-19) 02/11/24 02:40 BUN 17 mg/dL (6-20) 02/11/24 02:40 Creatinine 0.7 mg/dL (0.5-0.9) 02/11/24 02:40 GFR Calculation 91.8 mL/min (90-130) 02/11/24 02:40 Glucose 93 mg/dL (65-115) 02/11/24 02:40 Calculated Osmolality 289 mOsm/kg (285-295) 02/11/24 02:40 Calcium 9.4 mg/dL (8.5-10.5) 02/11/24 02:40 Total Bilirubin 0.4 mg/dL (0.15-1.2) 02/11/24 02:40 AST 11 U/L (0-32) 02/11/24 02:40 ALT 11 U/L (0-33) 02/11/24 02:40 Alkaline Phosphatase 101 U/L (35-105) 02/11/24 02:40 Troponin T Baseline < 6 ng/L (0-10) 02/11/24 02:40 Total Protein 7.6 g/dL (6.6-8.7) 02/11/24 02:40 Albumin 4.5 g/dL (3.5-5.2) 02/11/24 02:40 Globulin 3.1 g/dL (1.3-4.6) 02/11/24 02:40 All radiology interpretation(s) finalized by discharge Discharge Plan Discharge Patient Disposition: Home Clinical Impression: Non-cardiac chest pain Condition: Stable Prescriptions: No Action losartan 50 mg tablet 50 mg PO DAILY hydrochlorothiazide 25 mg tablet 25 mg PO DAILY zolpidem [Ambien] 5 mg tablet 5 mg PO .HS PRN promethazine 25 mg tablet 25 mg PO DAILY sulfamethoxazole-trimethoprim [Bactrim DS] 800-160 mg tablet 1 tab PO BID Qty: 14 0RF acetaminophen 500 mg tablet 1,000 mg PO Q6H PRN (Reason: pain) Patient Comments: sometimes takes 4 tablets Discharge Orders: Discharge ED (Routine); Ordered 02/11/24 Ordered By: Anamaria Dominguez Referrals: Armaan Barraza MD [Primary Care Provider] - Discharge Diet: Usual diet Discharge Activity: Increase activity as tolerated Patient Instructions: Noncardiac Chest Pain (ED), Opioid Safety, Pain Management Activity Restrictions/Additional Instructions: Thank you for choosing [facility] for your healthcare needs today. Please realize this is an emergency room and that we are providing you with a medical screening exam and this may not be complete and all inclusive of all the testing and or work up that you may need to determine your ailment or severity of your illness. You have been screened and evaluated and felt safe for discharge. Health conditions do change or evolve sometimes and as such it is important that you follow up with your Primary Doctor to be re checked, 3-5 days is a general good time frame for follow up. You are always welcome to return to the ED for re assessment if your symptoms are worsening or you have new concerns Coding Level of Care Code ED Program [employer]ide [employer] Work for Cheryl Mares
[2024-02-11 02:48] LABS: Basophils # 0.1 10^3/uL (0.0-0.1); Basophils % 0.6 %; Eosinophils # 0.4 10^3/uL (0.0-0.8); Eosinophils % 2.2 %; Hematocrit 40.8 % (36-47); Lymphocytes # 4.3 10^3/uL (0.8-4.8); Lymphocytes % 24.9 %; Mean Corpuscular HGB Conc 32.4 g/dL (30-55); Mean Corpuscular Hemoglobin 29.5 pg (27-33); Mean Corpuscular Volume 91.3 fl (85-98); Mean Platelet Volume 9.8 fL (7.4-10.4); Monocytes # 1.4 10^3/uL (0.2-0.9); Monocytes % 7.8 %; Neutrophils # 11.02 10^3/uL (1.8-7.7); Nucleated Red Blood Cells % 0 %; Platelet Count 386 10^3/cmm (157-399); Red Blood Count 4.47 10^6/uL (3.85-5.65); Red Cell Distribution Width 14.5 % (12.1-15.1); White Blood Count 17.22 10^3/uL (3.29-11.43)
[2024-02-11 03:00] VITALS: BP 141/76; PULSE 76; RESP 22; O2SAT 99
[2024-02-11 03:07] LABS: Troponin(5th) Baseline < 6 ng/L (0-10)
[2024-02-11 03:08] LABS: Alanine Aminotransferase 11 U/L (0-33); Albumin Level 4.5 g/dL (3.5-5.2); Alkaline Phosphatase 101 U/L (35-105); Aspartate Amino Transferase 11 U/L (0-32); Blood Urea Nitrogen 17 mg/dL (6-20); Calcium 9.4 mg/dL (8.5-10.5); Carbon Dioxide 22 mmol/L (22-29); Chloride 103 mmol/L (98-107); Creatinine Clr Calc Pharmacy 187.2703; Globulin 3.1 g/dL (1.3-4.6); Glomerular Filtration Rate 91.8 mL/min (90-130); Glucose 93 mg/dL (65-115); Osmolality Calculated 289 mOsm/kg (285-295); Sodium 139 mmol/L (136-145); Total Bilirubin 0.4 mg/dL (0.15-1.2); Total Protein 7.6 g/dL (6.6-8.7)
[2024-02-11 03:14] LABS: Anion Gap 17.9 (5-19); Potassium 3.9 mmol/L (3.5-5.1)
[2024-02-11 03:29] VITALS: BP 119/80; PULSE 77; O2SAT 96
== END 2024-02-11 03:30 | disposition home or self-care (01) ==
PROVIDERS: Emergency Provider Emergency Medicine; PCP Family Medicine
DX: R07.89 Other chest pain (principal); I10 Essential (primary) hypertension; E66.9 Obesity, unspecified; Z68.45 Body mass index [BMI] 70 or greater, adult; F17.210 Nicotine dependence, cigarettes, uncomplicated
CPT/HCPCS: 36415; 71045; 80053; 84484; 85025; 93005; 99285

== ENCOUNTER → 2024-06-14 08:31 | Outpatient (BNVA) | payer OTHER, MEDICAID, SELFPAY | PROVIDERS: PCP Family Medicine; Visit Provider Thoracic Surgery (Cardiothoracic Vascular Surgery) | DX: I89.0 Lymphedema, not elsewhere classified (principal); S81.802A Unspecified open wound, left lower leg, initial encounter; X58.XXXA Exposure to other specified factors, initial encounter | CPT/HCPCS: 87070; 87075; 87176; 87205 ==

== ENCOUNTER 2024-07-01 08:06 | Outpatient (CLI) | payer OTHER, MEDICAID, SELFPAY ==
--- NOTE | 2024-07-01 09:30 | USR_ITS ---
PROCEDURE INFORMATION: Exam: US Duplex Left Lower Extremity Veins, Limited Exam date and time: 07/01/2024 9:06 AM Age: 44 years old Clinical indication: Injury or trauma; Other: Unknown; Wound, open; Left; Ankle and foot level; Vessel not specified; Additional info: S81.555c - unspecified open wound, left lower leg, initia. . . , W/ reflux provocation TECHNIQUE: Imaging protocol: Real-time duplex ultrasound of the left extremity with 2-D snow scale, color Doppler flow and spectral waveform analysis including responses to compression and other maneuvers (when performed) with image documentation. Limited exam focused on the left lower extremity veins. COMPARISON: No relevant prior studies available. FINDINGS: Left deep veins: Unremarkable. The common femoral, femoral, proximal profunda femoral and popliteal veins are patent without thrombus. Normal Doppler waveforms. Normal compressibility and/or augmentation response. Superficial veins: Greater saphenous vein at the saphenofemoral junction is patent without thrombus. No reflux detected. Soft tissues: Unremarkable. US/CV mouna dup insuff [facility] [id number] IMPRESSION: 1. No evidence of deep vein thrombosis. 2. No evidence of venous insufficiency.
== END 2024-07-01 08:07 | disposition home or self-care (01) ==
PROVIDERS: PCP Family Medicine; Visit Provider Thoracic Surgery (Cardiothoracic Vascular Surgery)
DX: S81.802A Unspecified open wound, left lower leg, initial encounter (principal); R52 Pain, unspecified; X58.XXXA Exposure to other specified factors, initial encounter
CPT/HCPCS: 93971

== ENCOUNTER → 2025-03-07 08:53 | Outpatient (BNVA) | payer OTHER, SELFPAY | PROVIDERS: Visit Provider Thoracic Surgery (Cardiothoracic Vascular Surgery) | DX: I96 Gangrene, not elsewhere classified (principal); I89.0 Lymphedema, not elsewhere classified; L97.821 Non-pressure chronic ulcer of other part of left lower leg limited to breakdown of skin | CPT/HCPCS: 87070; 87077; 87176; 87186; 87205 ==